=== PATIENT | female | born 1960 | race Caucasian/White ===

== ENCOUNTER 2022-07-28 17:25 | Emergency (ER) | payer OTHER ==
[~2022-07-28 17:25] MED LIST: AFEDITAB60 MG OR; AMITRIPTYLIN100 MG OR; ATENOLOL50 MG PO; BACLOFEN10 MG PO; HYDROCHLOROT12.5 M1 OR; HYDROCO/AP10 MG/660 OR; METHOCARBAM750 MG OR; MORPHINE SUL15 MG OR; OMEPRAZOLE20 MG OR; SIMVASTATIN40 MG OR; SINGULAIR10 MG OR
[2022-07-29] MEDS ORDERED: ALPRAZOLAM0.5 MG PO (13:27)
[2022-07-29] MEDS ORDERED: TRAMADOL HCL50 MG PO (13:29)
[2022-07-29] MEDS ORDERED: FLEXERIL5 M1 PO (14:09)
[2022-07-29] MEDS ORDERED: NAPROXEN500 MG PO (14:09)
[2022-07-29] MEDS ORDERED: ULTRAM50 M1 PO (14:09)
== END 2022-07-28 18:39 | disposition left against medical advice (07) | DRG 951 ==
LOC: ED 17:25 → LWOBS 18:39
DX: Z53.21 Procedure and treatment not carried out due to patient leaving prior to being seen by health care provider (principal)

== ENCOUNTER 2022-07-29 12:22 | Emergency (ER) | payer OTHER ==
[~2022-07-29] VITALS: Ht 167.6 cm; Wt 73.0 kg
[2022-07-29 12:36] VITALS: BP 149/94
[2022-07-29 12:45] VITALS: BP 137/85
[2022-07-29 13:00] VITALS: BP 134/94
[2022-07-29] MEDS ORDERED: ALPRAZOLAM0.5 MG PO (13:27)
[2022-07-29] MEDS ORDERED: TRAMADOL HCL50 MG PO (13:29)
[2022-07-29] MEDS ORDERED: NAPROXEN500 MG PO (14:09)
[2022-07-29] MEDS ORDERED: ULTRAM50 M1 PO (14:09)
[2022-07-29] MEDS ORDERED: FLEXERIL5 M1 PO (14:09)
[2022-07-29 14:40] VITALS: BP 134/94
== END 2022-07-29 14:47 | disposition home or self-care (01) | DRG 552 ==
LOC: ED 12:22
DX: M54.2 Cervicalgia (principal); M54.40 Lumbago with sciatica, unspecified side; F17.200 Nicotine dependence, unspecified, uncomplicated; V59.40XA Driver of pick-up truck or van injured in collision with unspecified motor vehicles in traffic accident, initial encounter

== ENCOUNTER 2022-09-04 16:49 | Emergency (ER) | payer OTHER ==
[~2022-09-04] VITALS: Ht 167.6 cm; Wt 74.0 kg
[~2022-09-04 16:49] MED LIST changes: +ALPRAZOLAM0.5 MG PO; +FLEXERIL5 M1 PO; +NAPROXEN500 MG PO; +TRAMADOL HCL50 MG PO; +ULTRAM50 M1 PO
[2022-09-04 17:03] VITALS: BP 129/91
[2022-09-04 17:15] VITALS: BP 114/72
[2022-09-04 17:30] VITALS: BP 120/79
[2022-09-04 17:45] VITALS: BP 125/77
[2022-09-04 18:00] VITALS: BP 134/112
[2022-09-04 18:04] VITALS: BP 134/112
== END 2022-09-04 18:10 | disposition home or self-care (01) | DRG 605 ==
LOC: ED 16:49
PROC: 0HQGXZZ Repair Left Hand Skin, External Approach (ICD-10-PCS; principal; 2022-09-04)
DX: S61.211A Laceration without foreign body of left index finger without damage to nail, initial encounter (principal); S61.412A Laceration without foreign body of left hand, initial encounter; W45.8XXA Other foreign body or object entering through skin, initial encounter; F17.210 Nicotine dependence, cigarettes, uncomplicated

== ENCOUNTER 2022-10-21 16:51 | Emergency (ER) | payer OTHER ==
[~2022-10-21] VITALS: Ht 167.6 cm; Wt 63.0 kg
[2022-10-21 17:21] VITALS: BP 135/75
[2022-10-21 17:30] VITALS: BP 125/86
[2022-10-21 17:45] VITALS: BP 117/83
[2022-10-21] MEDS ORDERED: HYDROCO/APAP1 T10 PO (18:13)
[2022-10-21 18:18] VITALS: BP 117/83
== END 2022-10-21 18:19 | disposition home or self-care (01) | DRG 552 ==
LOC: ED 16:51
DX: M54.50 Low back pain, unspecified (principal); I10 Essential (primary) hypertension; F17.200 Nicotine dependence, unspecified, uncomplicated

== ENCOUNTER 2022-10-30 16:21 | Emergency (ER) | payer OTHER ==
[~2022-10-30] VITALS: Ht 167.6 cm; Wt 70.5 kg
[~2022-10-30 16:21] MED LIST changes: +HYDROCO/APAP1 T10 PO
[2022-10-30 17:30] VITALS: BP 108/69
[2022-10-30 17:45] VITALS: BP 104/66
[2022-10-30] MEDS ORDERED: NAPROXEN500 MG PO (17:56)
[2022-10-30] MEDS ORDERED: CYCLOBENZAPRINE10 MG PO (17:56)
[2022-10-30] MEDS ORDERED: PREDNISONE10 MG PO (17:56)
[2022-10-30 18:07] VITALS: BP 104/66
== END 2022-10-30 18:08 | disposition home or self-care (01) | DRG 206 ==
LOC: ED 16:21
DX: S27.892A Contusion of other specified intrathoracic organs, initial encounter (principal); W18.30XA Fall on same level, unspecified, initial encounter; M54.50 Low back pain, unspecified

== ENCOUNTER 2023-01-21 10:37 | Emergency (ER) | payer OTHER ==
[~2023-01-21] VITALS: Ht 167.6 cm; Wt 72.0 kg
[~2023-01-21 10:37] MED LIST changes: +CYCLOBENZAPRINE10 MG PO; +PREDNISONE10 MG PO
[2023-01-21 10:54] VITALS: BP 133/80
[2023-01-21 11:00] VITALS: BP 114/78
[2023-01-21] MEDS ORDERED: ASPIRINCHW 81MG PO (11:16)
[2023-01-21] MEDS ORDERED: LEXAPRO10 MG PO (11:17)
[2023-01-21 11:30] VITALS: BP 116/69
[2023-01-21 12:01] VITALS: BP 98/71
[2023-01-21] MEDS ORDERED: PERCOCET 5/325M1 TAB PO (12:12)
[2023-01-21 12:17] VITALS: BP 98/71
== END 2023-01-21 12:30 | disposition home or self-care (01) | DRG 556 ==
LOC: ED 10:37
DX: M25.562 Pain in left knee (principal); I10 Essential (primary) hypertension; F17.210 Nicotine dependence, cigarettes, uncomplicated

== ENCOUNTER 2023-10-20 13:51 | Emergency (ER) | payer OTHER ==
[~2023-10-20] VITALS: Ht 167.6 cm; Wt 84.0 kg
[~2023-10-20 13:51] MED LIST changes: +ASPIRINCHW 81MG PO; +LEXAPRO10 MG PO; +PERCOCET 5/325M1 TAB PO
[2023-10-20 14:00] VITALS: BP 130/77
[2023-10-20 14:11] LABS: BASO% 0.4 % (0-3); EOS% 1.9 % (0-8); HEMATOCRIT 38.8 % (37.0-47.0); HEMOGLOBIN 12.2 g/dl (12.0-16.0); IMMATURE GRANULOCYTES 0.1 % (0.0-5.0); LYMPH% 36.4 % (15-41); MEAN CELL VOLUME 88.8 fL CALC (80.0-100.0); MEAN CORPUSCULAR HGB 27.9 pG CALC (26.0-32.0); MEAN CORPUSCULAR HGB CONC 31.4 g/dL CAL (32.0-36.0); NEUT# 4.01 thou/uL (2.00-7.15); NEUT% 53.2 % (42-76); RED BLOOD COUNT 4.37 mill/uL (4.20-5.60); RED CELL DISTRI WIDTH 16.9 % (11.5-15.5)
[2023-10-20 14:28] LABS: PROTHROMBIN TIME 9.5 SECONDS (9.0-12.5)
[2023-10-20 14:30] VITALS: BP 120/72
[2023-10-20 14:38] LABS: D-DIMER 0.65 mg/L (0.19-0.60)
[2023-10-20] MEDS ORDERED: LYRICA75 MG PO (14:49)
[2023-10-20 15:06] LABS: ALKALINE PHOSPHATASE 108 u/l (38-126); ANION GAP 9 (6-22 (CALC)); BUN 10 mg/dL (8-23); BUN/CREATININE RATIO 16 (12-20 (CALC)); CARBON DIOXIDE 30 mmol/l (22-30); CHLORIDE 101 mmol/l (95-108); CREATININE 0.6 mg/dL (0.5-1.0); GFR FOR AFR.AMER. > 60 ML/MIN (>=60 (CALC)); GFR OTHER RACES > 60 ML/MIN (>=60 (CALC)); POTASSIUM 3.9 mmol/l (3.5-5.1); SGOT/AST 33 u/l (9-36); SODIUM 136 mmol/l (137-146); TOTAL PROTEIN 6.6 g/dL (6.3-8.2)
[2023-10-20 15:07] LABS: BILIRUBIN, TOTAL 0.4 mg/dL (0.02-1.3)
[2023-10-20 17:40] VITALS: BP 149/99
[2023-10-20 18:00] VITALS: BP 133/73
[2023-10-20] MEDS ORDERED: MECLIZINE25 M1 PO (18:13)
[2023-10-20] MEDS ORDERED: ZOFRAN4 MG/TAB PO (18:13)
[2023-10-20 18:28] VITALS: BP 133/73
== END 2023-10-20 18:34 | disposition home or self-care (01) | DRG 313 ==
LOC: ED 13:51
PROVIDERS: Emergency Medicine
DX: R07.9 Chest pain, unspecified (principal); R42 Dizziness and giddiness; I10 Essential (primary) hypertension; F17.200 Nicotine dependence, unspecified, uncomplicated
CPT/HCPCS: Q9967

== ENCOUNTER 2024-04-16 16:41 | Emergency (ER) | payer OTHER ==
[~2024-04-16] VITALS: Ht 167.6 cm; Wt 81.6 kg
[~2024-04-16 16:41] MED LIST changes: +LYRICA75 MG PO; +MECLIZINE25 M1 PO; +ZOFRAN4 MG/TAB PO
[2024-04-16] MEDS ORDERED: NEOMYCIN-BACITRACIN-POLYMYXIN 0.5 GM/PAK PAK TOP ONE (17:10)
== END 2024-04-16 17:25 | disposition home or self-care (01) | DRG 605 ==
LOC: ED 16:41
PROC: 0HQFXZZ Repair Right Hand Skin, External Approach (ICD-10-PCS; principal; 2024-04-16)
DX: S61.011A Laceration without foreign body of right thumb without damage to nail, initial encounter (principal); I10 Essential (primary) hypertension; F17.200 Nicotine dependence, unspecified, uncomplicated; W27.4XXA Contact with kitchen utensil, initial encounter; Y93.G1 Activity, food preparation and clean up; Y92.000 Kitchen of unspecified non-institutional (private) residence as the place of occurrence of the external cause